=== PATIENT | female | born 1950 | race Two or more races ===

== ENCOUNTER → 2019-04-07 | Outpatient (CLI) | payer OTHER ==
[~2019-04-07] MED LIST: PAXIL10 MG/5 ML PO
== END | disposition home or self-care (01) ==
LOC: RAD 13:16
DX: K21.9 Gastro-esophageal reflux disease without esophagitis (principal); E03.8 Other specified hypothyroidism

== ENCOUNTER → 2021-04-20 | Emergency (ER) | payer OTHER ==
[~2021-04-20] VITALS: Ht 160 cm; Wt 86.2 kg
[~2021-04-20] MED LIST changes: +AMOX-CLAV 875-1 EACH PO; +CETIRIZINE HCL10 MG PO; +FOSAMAX70 MG PO; +INTESTINEX680 M1 PO; +KETO10TA2 PO; +LEVOTHYROXINE88 MC1 PO; +TRAZODONE HCL50 MG PO
== END | disposition home or self-care (01) ==
LOC: ER 09:28
DX: L03.012 Cellulitis of left finger (principal); T63.441A Toxic effect of venom of bees, accidental (unintentional), initial encounter; R60.0 Localized edema; Y92.89 Other specified places as the place of occurrence of the external cause

== ENCOUNTER 2021-05-30 15:00 | Outpatient (CLI) | payer OTHER | END 2021-05-30 15:30 | disposition home or self-care (01) | LOC: PPH VACUNA 15:00 | PROVIDERS: ATTEND Emergency Medicine Pediatric Emergency Medicine | DX: Z23 Encounter for immunization (principal) ==

== ENCOUNTER 2021-10-30 12:41 | Outpatient (CLI) | payer OTHER | END 2021-10-30 12:48 | disposition home or self-care (01) | LOC: RAD 12:41 | PROVIDERS: ATTEND Family Medicine Adult Medicine | DX: M12.541 Traumatic arthropathy, right hand (principal) ==

== ENCOUNTER 2022-02-23 18:06 | Emergency (ER) | payer OTHER ==
[~2022-02-23] VITALS: Ht 157.5 cm; Wt 86.2 kg
[2022-02-23] MEDS ORDERED: PROAIR HFA8.5 GM IH (19:30)
[2022-02-23] MEDS ORDERED: TUSNEL LIQUID178 ML PO (19:30)
[2022-02-23] MEDS ORDERED: MOLNUPIRAVIR (200 MG PO (19:30)
== END 2022-02-23 19:54 | disposition home or self-care (01) ==
LOC: ER 18:06
DX: U07.1 COVID-19 (principal)

== ENCOUNTER → 2022-10-31 14:12 | Outpatient (CLI) | payer OTHER ==
[~2022-10-31 14:12] MED LIST changes: +MOLNUPIRAVIR (200 MG PO; +PROAIR HFA8.5 GM IH; +TUSNEL LIQUID178 ML PO
== END | disposition home or self-care (01) ==
LOC: LAB 14:12
DX: K21.9 Gastro-esophageal reflux disease without esophagitis (principal)

== ENCOUNTER 2022-11-02 | Outpatient (CLI) | payer OTHER | END 2022-11-02 00:15 | disposition home or self-care (01) | LOC: PPH VACUNA | DX: Z23 Encounter for immunization (principal) ==

== ENCOUNTER 2023-05-23 17:00 | Emergency (ER) | payer OTHER ==
[~2023-05-23] VITALS: Ht 160 cm; Wt 81.6 kg
[2023-05-23] MEDS ORDERED: ESTAZOLAM2 MG (17:57)
[2023-05-23] MEDS ORDERED: TRAZODONE HCL150 MG (17:57)
[2023-05-23] MEDS ORDERED: FOSAMAX70 MG PO (17:58)
== END 2023-05-23 20:25 | disposition home or self-care (01) ==
LOC: ER 17:00
DX: H81.10 Benign paroxysmal vertigo, unspecified ear (principal)
CPT/HCPCS: 96372; 99284; J2765

== ENCOUNTER 2024-02-16 17:10 | Emergency (ER) | payer OTHER ==
[~2024-02-16] VITALS: Ht 160 cm; Wt 85.3 kg
[~2024-02-16 17:10] MED LIST changes: +ESTAZOLAM2 MG; +TRAZODONE HCL150 MG
[2024-02-16] MEDS ORDERED: RESTORIL15 M1 PO (17:31)
[2024-02-16] MEDS ORDERED: METOCLOPRAMIDE HCL 5 MG/ML VIAL IM STA (19:26)
[2024-02-16] MEDS ORDERED: RINGERS SOLUTION,LACTATED 500 ML IV STA (19:27)
[2024-02-16] MEDS ORDERED: ONDANSETRON HCL 2 MG/ML VIAL IV STA (19:28)
[2024-02-16] MEDS ORDERED: FAMOTIDINE/PF 20 MG/2 ML VIAL IV PUSH STA (19:28)
[2024-02-16] MEDS ORDERED: LORazepam 1 MG TABLET PO STA (19:29)
[2024-02-16] MEDS ORDERED: ONDANSETRON HCL 2 MG/ML VIAL ONE (19:40)
[2024-02-16] MEDS ORDERED: METOCLOPRAMIDE HCL 5 MG/ML VIAL ONE (19:40)
[2024-02-16] MEDS ORDERED: FAMOtidine 200mg/20ml VIAL ONE (19:41)
== END 2024-02-16 21:07 | disposition home or self-care (01) ==
LOC: ER 17:11
DX: R11.10 Vomiting, unspecified (principal); F41.1 Generalized anxiety disorder
CPT/HCPCS: 96365; 96372; 99282; J2405; J2765; J3490

== ENCOUNTER 2025-06-25 19:15 | Inpatient (IN) | payer OTHER ==
[~2025-06-25] VITALS: Ht 160 cm; Wt 86.2 kg
[~2025-06-25 19:15] MED LIST changes: +RESTORIL15 M1 PO
--- NOTE | 2025-06-25 20:03 | NUR ---
PTE ALERTA Y ORIENTADA X3 REFIERE VARIOS EPISODISO DE VOMITOS. SE MIDEN S/V Y S EUBICA.
[2025-06-25] MEDS ORDERED: LEVALBUTEROL HCL 1.25 MG/3 ML SOLUTION IH SCH (20:09)
[2025-06-25] MEDS ORDERED: MORPHINE SULFATE 4 MG/ML VIAL IV PRN (20:15)
[2025-06-25] MEDS ORDERED: 0.9 % SODIUM CHLORIDE 1,000 ML IV ONE (20:15)
[2025-06-25] MEDS ORDERED: FAMOtidine 10 MG/ML (4ML VIAL) IV ONE (20:15)
[2025-06-25] MEDS ORDERED: CIPROFLOXACIN IN 5 % DEXTROSE 400 MG/200 ML PIGGYBAG IV ONE ×2 (20:15→20:25)
[2025-06-25] MEDS ORDERED: ONDANSETRON HCL 2 MG/ML VIAL IV ONE (20:15)
[2025-06-25] MEDS ORDERED: FAMOTIDINE/PF 20 MG/2 ML VIAL ONE (20:25)
[2025-06-25] MEDS ORDERED: ONDANSETRON HCL 2 MG/ML VIAL ONE (20:25)
--- NOTE | 2025-06-25 21:02 | NUR ---
SE ORIENTA A PACIENTE SOBRE ORDEN MEDICA LA MISMA REFIERE ENTENDER Y ACEPTA.\
[2025-06-25 21:22] LABS: COVID-19 AG NEGATIVE (NEGATIVE)
[2025-06-25 22:16] LABS: BASO % 0.5 % (0.1-1.2); EOS # 0.01 (0.04-0.54); EOS % 0.2 % (0.7-7.0); LYMPH # 1.08 (1.18-3.74); LYMPH % 26.0 % (19.3-53.1); MEAN PLATELET VOLUME 9.70 fl (9.4-12.4); MONO # 0.27 (0.24-0.82); MONO % 6.5 % (4.7-12.5); NEUT # 2.77 (1.56-6.13); NEUT % 66.6 % (34.0-71.1); RED CELL DISTRIBUTION WIDTH 13.0 % (11.6-14.4)
[2025-06-25 22:45] LABS: INR 0.95
[2025-06-25 22:51] LABS: ALT/SGPT 29.0 U/L (12-78); AST/SGOT 27.0 U/L (15-37); BILIRUBIN TOTAL 0.33 mg/dL (0.3-1.2); BILIRUBIN,CONJUGATED 0.11 mg/dL (0.0-0.2); BUN CREA RATIO 22.0 (7.0-25.0); CREATININE SERUM 0.87 mg/dL (0.55-1.02); GFR 63.3; GLOBULINA 4.0 G/DL (2.4-3.5); GLUCOSE FASTING 141.0 mg/dL (65-100); OSMOLALITY SERUM 288.0 MOSM/KG (275-295)
[2025-06-26] MEDS ORDERED: PIPERACILLIN/TAZOBACTAM SODIUM 3.375 GM in DEXTROSE 5 % IN WATER 100 ML IV SCH ×2 (00:11→18:00)
[2025-06-26] MEDS ORDERED: DEXTROSE 50 % IN WATER 0.5 G/ML DISP.SYRIN IV PRN (00:15)
[2025-06-26] MEDS ORDERED: INSULIN LISPRO 1,000 UNIT/10 ML UNITS SUBCUTANEO PRN (00:15)
[2025-06-26 01:59] LABS: URINE APPEARANCE Turbid; URINE BILIRRUBIN Negative (NEGATIVE); URINE BLOOD Trace; URINE COLOR Dark Yellow; URINE GLUCOSE Negative (NEGATIVE); URINE KETONE Trace (NEGATIVE); URINE LEUKOCYTE Small; URINE NITRATE Negative; URINE UROBILINOGEN 0.2 E.U./dl
[2025-06-26 02:04] LABS: URINE BACTERIA 521.6 uL (0.0-1933); URINE CAST 5.38 uL (0.0-1.40); URINE EPITHELIAL CELLS 66.6 uL (0.0-38.8); URINE RBC 3.9 uL (0.0-20.8); URINE WBC 280.1 uL (0.0-23.2)
[2025-06-26 02:32] LABS: URINE CRYSTALS MANY /HPF; URINE PROTEIN 100 (NEGATIVE)
[2025-06-26] MEDS ORDERED: PIPERACILLIN/TAZOBACTAM SODIUM 3.375 GM VIAL IV ONE ×2 (03:22→11:21)
[2025-06-26] MEDS ORDERED: 0.9 % SODIUM CHLORIDE 1,000 ML IV SCH (14:30)
[2025-06-26] MEDS ORDERED: FAMOTIDINE/PF 20 MG in 0.9 % SODIUM CHLORIDE 8 ML IV PUSH SCH (14:33)
[2025-06-26] MEDS ORDERED: MORPHINE SULFATE 4 MG/ML CARTRIDGE IV PRN (14:45)
[2025-06-26 16:57] VITALS: BP 177/75
[2025-06-26] MEDS ORDERED: TEMAZEPAM 15 MG CAPSULE PO SCH (21:00)
[2025-06-26] MEDS ORDERED: TRAZODONE HCL 50 MG TABLET PO SCH (21:00)
[2025-06-27] VITALS: BP 144/67; O2SAT 96
[2025-06-27] MEDS ORDERED: LEVOTHYROXINE SODIUM 88 MCG TABLET PO SCH (06:00)
[2025-06-27 08:00] VITALS: BP 170/77; O2SAT 96
[2025-06-27 08:50] LABS: ALT/SGPT 26.0 U/L (12-78); AST/SGOT 27.0 U/L (15-37); BILIRUBIN TOTAL 0.84 mg/dL (0.3-1.2); BILIRUBIN,CONJUGATED 0.24 mg/dL (0.0-0.2)
[2025-06-27 16:00] VITALS: BP 107/74; O2SAT 96
[2025-06-28 00:30] VITALS: BP 193/76; O2SAT 93
[2025-06-28 08:00] VITALS: BP 170/74; O2SAT 95
[2025-06-28] MEDS ORDERED: AMINO ACIDS/PROTEIN HYDROLYS 30 ML BLIST.PACK PO SCH (09:00)
[2025-06-28] MEDS ORDERED: ENALAPRILAT DIHYDRATE 1.25 MG/ML VIAL IV PRN (09:15)
[2025-06-28] MEDS ORDERED: LOSARTAN POTASSIUM 50 MG TABLET PO NR (10:00)
[2025-06-28 11:52] LABS: BASO % 0.4 % (0.1-1.2); EOS # 0.09 (0.04-0.54); EOS % 1.1 % (0.7-7.0); LYMPH # 1.37 (1.18-3.74); LYMPH % 16.9 % (19.3-53.1); MEAN PLATELET VOLUME 9.80 fl (9.4-12.4); MONO # 0.89 (0.24-0.82); MONO % 11.0 % (4.7-12.5); NEUT # 5.72 (1.56-6.13); NEUT % 70.4 % (34.0-71.1); RED CELL DISTRIBUTION WIDTH 13.2 % (11.6-14.4)
[2025-06-28 12:12] LABS: INR 1.02
[2025-06-28 13:25] LABS: BUN CREA RATIO 14.0 (7.0-25.0); CREATININE SERUM 0.64 mg/dL (0.55-1.02); GFR 90.22; GLUCOSE FASTING 76.0 mg/dL (65-100); OSMOLALITY SERUM 277.0 MOSM/KG (275-295)
[2025-06-28 16:00] VITALS: BP 182/83; O2SAT 94
[2025-06-28] MEDS ORDERED: AMLODIPINE BESYLATE 5 MG TABLET PO SCH (17:00)
[2025-06-29 08:30] VITALS: BP 185/80; O2SAT 96
[2025-06-29] MEDS ORDERED: LOSARTAN POTASSIUM 50 MG TABLET PO SCH (09:00)
[2025-06-29] MEDS ORDERED: LOSARTAN POTASSIUM 25 MG TABLET PO SCH (09:00)
[2025-06-29 13:08] VITALS: BP 175/81; O2SAT 95
[2025-06-29] MEDS ORDERED: LOSARTAN POTASSIUM 50 MG TABLET PO NR (15:45)
[2025-06-29] MEDS ORDERED: FAMOTIDINE/PF 20 MG in 0.9 % SODIUM CHLORIDE 8 ML IV PUSH SCH (21:00)
[2025-06-29] MEDS ORDERED: SUGAMMADEX SODIUM 200 MG/2 ML VIAL IV ONE (21:20)
[2025-06-29] MEDS ORDERED: MORPHINE SULFATE 2 MG/ML SYRINGE IV PRN (21:30)
[2025-06-29] MEDS ORDERED: ONDANSETRON HCL 2 MG/ML VIAL ONE (22:08)
[2025-06-29] MEDS ORDERED: ONDANSETRON HCL 2 MG/ML VIAL IV ONE (22:15)
[2025-06-29 23:48] LABS: ALT/SGPT 31.0 U/L (12-78); AST/SGOT 45.0 U/L (15-37); BILIRUBIN TOTAL 0.72 mg/dL (0.3-1.2); BILIRUBIN,CONJUGATED 0.26 mg/dL (0.0-0.2)
[2025-06-29] MEDS ORDERED: PIPERACILLIN/TAZOBACTAM SODIUM 3.375 GM VIAL IV ONE (23:48)
[2025-06-30 00:56] VITALS: BP 148/85; O2SAT 98
[2025-06-30 08:09] VITALS: BP 170/86; O2SAT 96
[2025-06-30 08:13] VITALS: BP 170/86; O2SAT 96
[2025-06-30] MEDS ORDERED: LOSARTAN POTASSIUM 50 MG TABLET PO SCH (09:00)
[2025-06-30 14:00] VITALS: BP 187/81; O2SAT 95
[2025-06-30] MEDS ORDERED: NIFEDIPINE 30 MG TAB.SA.OSM PO SCH (17:00)
[2025-07-01 00:15] VITALS: BP 167/85; O2SAT 94
[2025-07-01 08:00] VITALS: BP 169/83; O2SAT 94
== END 2025-07-01 12:34 | disposition home or self-care (01) | DRG 419 ==
LOC: ER 19:16 → SURG 06-26 14:36
PROVIDERS: General Practice; Student in an Organized Health Care Education/Training Program; ADMIT Student in an Organized Health Care Education/Training Program; ATTEND Student in an Organized Health Care Education/Training Program
PROC: BW21ZZZ Computerized Tomography (CT Scan) of Abdomen and Pelvis (ICD-10-PCS; 2025-06-25)
PROC: BW40ZZZ Ultrasonography of Abdomen (ICD-10-PCS; 2025-06-26)
PROC: 0FT44ZZ Resection of Gallbladder, Percutaneous Endoscopic Approach (ICD-10-PCS; principal; 2025-06-29 23:45)
DX: K80.00 Calculus of gallbladder with acute cholecystitis without obstruction (principal); K82.A1 Gangrene of gallbladder in cholecystitis